=== PATIENT | female | born 1945 | race Hispanic/Latino ===

== ENCOUNTER 2018-03-31 10:56 | Outpatient (CLI) | payer MEDICARE, BC | END 2018-03-31 10:57 | disposition home or self-care (01) | LOC: BICMAMMO 10:56 | PROVIDERS: ATTEND Family Medicine | DX: Z12.31 Encounter for screening mammogram for malignant neoplasm of breast (principal); R92.1 Mammographic calcification found on diagnostic imaging of breast | CPT/HCPCS: 77063; 77067 ==

== ENCOUNTER 2019-02-23 13:07 | Outpatient (CLI) | payer MEDICARE, BC ==
[2019-02-23 13:38] LABS: Estimated GFR-MDRD - POC Greater than 90
--- NOTE | 2019-02-23 14:09 | CT ---
CT abdomen and pelvis with and without IV contrast HISTORY: Recurrent urinary tract infections. Hematuria. FINDINGS: Each renal collecting system, ureter, and urinary bladder are decompressed without stone ap parent. Tiny bilateral renal cysts. No solid masses evident. No filling defects are apparent within the urinary system on the delayed images. Posterior aspect of the urinary bladder protrudes to the pe lvic floor between the vagina and pubic symphysis. Hyperdense stone apparent within the dependent portion of the gallbladder lumen. Degenerative changes lumbar spine. IMPRESSION: Cystocele. No urinary tract abnormalities are otherwise demonstrated. Cholelithiasis.
== END 2019-02-23 13:08 | disposition home or self-care (01) ==
LOC: BICCT 13:07
PROVIDERS: ATTEND Urology
DX: N39.0 Urinary tract infection, site not specified (principal); N81.10 Cystocele, unspecified; K80.20 Calculus of gallbladder without cholecystitis without obstruction; Z87.448 Personal history of other diseases of urinary system
CPT/HCPCS: 74178; 82565

== ENCOUNTER 2019-05-05 13:45 | Outpatient (CLI) | payer MEDICARE, BC ==
--- NOTE | 2019-05-05 16:13 | MMO ---
Bilateral MAMMO Bilat Screen [facility]. CLINICAL HISTORY: Patient is 74 years old and is seen for screening. The patient has no family history of breast cancer. The patient has no personal history of cancer. VIEWS: The views performed were: bilateral craniocaudal with tomosynthesis and bilateral mediolateral oblique with tomosynthesis. FILMS COMPARED: The present examination has been compared to prior imaging studies performed at [facility] on 12/19/2014, 01/03/2016, 01/15/2017 and 03/31/2018. MAMMOGRAM FINDINGS: There are scattered fibroglandular densities. There are stable benign appearing calcifications seen in both breasts. There are no suspicious masses, suspicious calcifications, or new areas of architectural distortion. IMPRESSION: THERE IS NO MAMMOGRAPHIC EVIDENCE OF MALIGNANCY. A ROUTINE FOLLOW-UP MAMMOGRAM IN 1 YEAR IS RECOMMENDED. THE RESULTS OF THIS EXAM WERE SENT TO THE PATIENT. ACR BI-RADS Category 2 - Benign finding MAMMOGRAPHY NOTE: 1. A negative mammogram report should not delay a biopsy if a dominant of clinically suspicious mass is present. 2. Approximately 10% to 15% of breast cancers are not detected by mammography. 3. Adenosis and dense breasts may obscure an underlying neoplasm. Reported by: MONCHO JOHNS MD Electonically Signed: [id number]
== END 2019-05-05 13:46 | disposition home or self-care (01) ==
LOC: BICMAMMO 13:45
PROVIDERS: ATTEND Family Medicine
DX: Z12.31 Encounter for screening mammogram for malignant neoplasm of breast (principal)
CPT/HCPCS: 77063; 77067

== ENCOUNTER 2019-05-06 14:27 | Outpatient (CLI) | payer MEDICARE, BC ==
--- NOTE | 2019-05-06 15:39 | ULT ---
Exam: THYROID ULTRASOUND: HISTORY: Thyroid nodule. COMPARISON: 10/24/2016. TECHNIQUE: Sagittal and transverse imaging of thyroid gland obtained. FINDINGS: Thyroid isthmus measures 0.4 cm. Right thyroid lobe measures 4.0 x 2.1 x 1.5 cm. Left thyroid lobe measures 4.1 x 1.5 x 1.4 cm. There are multiple complex nodules throughout the thyroid gland. These nodules are less than 1 cm in size. There is a solid nodule in the midportion the right thyroid lobe measuring 0.9 x 0.7 x 0.6 cm. Previously, this nodule measured 0.7 x 0.7 x 0.9 cm. No appreciable change. IMPRESSION: Multiple subcentimeter complex nodules in the thyroid gland. Solid nodule in the midpole the right th yroid lobe, unchanged. With regard to the solid nodule, TIRADS calculator score of TR3, mildly suspicious. Given the size of lesion, additional imaging is not warranted. No change since 10/24/2016 . Transcribed Date/Time: 05/06/2019 3:46 PM
== END 2019-05-06 14:28 | disposition home or self-care (01) ==
LOC: BICULT 14:27
PROVIDERS: ATTEND Family Medicine
DX: E04.2 Nontoxic multinodular goiter (principal); E07.89 Other specified disorders of thyroid
CPT/HCPCS: 76536

== ENCOUNTER 2019-05-07 13:15 | Outpatient (CLI) | payer MEDICARE, BC ==
--- NOTE | 2019-05-07 14:02 | BD ---
DEXA BONE DENSITY: HISTORY: Age-related osteoporosis. FINDINGS: Lumbar Spine: BMD (g/cm2) L1 0.751 T-Score: -2.2 -0.2 L2 0.781 T-Score: -2.2 0.0 L3 0.688 T-Score: -3.6 -1.3 L4 0.823 T-Score: -2.2 0.2 L1-L4 0.759 T-Score: -2.6 -0.4 Femoral Neck: 0.593 T-Score: -2.3 -0.5 Total Femur: 0.573 T-Score: -1.5 0.0 Impression: Lumbar Spine: WHO classification is osteoporosis; fracture risk is increased. Femoral Neck: WHO classification is osteopenia. FRAX not reported because some T-scores are at or below -2.1. POS: [facility]
== END 2019-05-07 13:16 | disposition home or self-care (01) ==
LOC: BICMAMMO 13:15
PROVIDERS: ATTEND Family Medicine
DX: M81.0 Age-related osteoporosis without current pathological fracture (principal); M85.859 Other specified disorders of bone density and structure, unspecified thigh
CPT/HCPCS: 77080